=== PATIENT | male | born 1955 | race Two or more races ===

== ENCOUNTER 2020-12-31 12:14 | Inpatient (IN) | payer OTHER ==
[2020-12-31] VITALS (9 sets, daily range): BP systolic 138–156; BP diastolic 58–80
[~2020-12-31] VITALS: Ht 185.4 cm; Wt 189.6 kg
[2020-12-31] MEDS ORDERED: IV NS 0.9% 1,000 ML BAG IV ONE (12:30)
[2020-12-31 12:42] LABS: BASOPHILS % (AUTO) 0.1 % (0.0-2.0); EOSINOPHILS % (AUTO) 0.3 % (0.0-6.0); HEMATOCRIT 43 % (39-51); HEMOGLOBIN 13.7 g/dL (13.5-17.5); LYMPHOCYTES # (AUTO) 1.1 /CMM (0.8-4.8); LYMPHOCYTES % (AUTO) 4.3 % (20.0-44.0); MEAN CORPUSCULAR HGB CONC 32 g/dl (31.0-36.0); MEAN CORPUSCULAR VOLUME 88 fL (80-96); MONOCYTES # (AUTO) 1.2 /CMM (0.1-1.30); MONOCYTES % (AUTO) 4.5 % (2.0-12.0); NEUTROPHILS # (AUTO) 23.4 /CMM (1.8-8.9); NEUTROPHILS % (AUTO) 90.8 % (43.0-81.0); PLATELET COUNT (AUTO) 255 /CMM (150-450); RED BLOOD CELL COUNT(AUTO) 4.84 MIL/uL (4.5-6.0); WHITE BLOOD COUNT (AUTO) 25.8 K/uL (4.3-11.0)
[2020-12-31] MEDS ORDERED: HYDR25TA4 PO (12:49)
[2020-12-31] MEDS ORDERED: ATOR10TA PO (12:49)
--- NOTE | 2020-12-31 12:51 | NUR ---
INOCENCIO FROM HOME TO ER BED 7. AAOX4. IN MILD RESP DISTRESS. BREATHING RAPID AND SHALLOW. O2 SAT NOTED @ 73% ON RA. BROUGHT IN FOR FEVER, SOB, GEN BODY ACHE, JOINT ACHE AND WEAKNESS FOR THAT PAST 9 DAYS. PT WAS NOTED WITH OARL TEMP OF 102.3. PT PLACED ON 02 VIA SIMPLE MASK @ 10 LPM SATTING @ 96-98%. WAS AT THE BEDSIDE FOR EVAL. ORDERS RECEIVED, NOTED AND CARRIED OUT. IV LINE ESTABLISHED ON LEFT UPPER ARM 18G, BLOOD DRAWN AND GIVEN TO SURGERY NURSE AT BEDSIDE. PT ON MONITOR.
[2020-12-31] MEDS ORDERED: ACETAMINOPHEN 325 MG TABLET ONE (13:05)
[2020-12-31] MEDS ORDERED: PIPERACILLIN /TAZOBACTAM 3.375 G VIAL IV ONE (13:05)
[2020-12-31 13:08] LABS: CALCIUM, SERUM 8.3 mg/dL (8.5-10.1); CREATININE 6.3 mg/dL (0.6-1.3); POTASSIUM 4.5 mmol/L (3.5-5.1)
[2020-12-31] MEDS ORDERED: DEXAMETHASONE SOD PHOSPHATE 10 MG/ML VIAL ONE (13:13)
[2020-12-31 13:19] LABS: ALBUMIN 2.4 g/dL (3.4-5.0); BILIRUBIN,DIRECT 0.4 mg/dL (0.0-0.2); BILIRUBIN,TOTAL 0.9 mg/dL (0.2-1.0); TOTAL PROTEIN, SERUM 7.7 g/dL (6.4-8.2)
--- NOTE | 2020-12-31 13:19 | NUR ---
SPOKE WITH [facility] FOR INITIAL VITAL SIGNS.
[2020-12-31] MEDS ORDERED: PIPERACILLIN /TAZOBACTAM 3.375 G in IV D5W 50 ML IV ONE (13:30)
[2020-12-31] MEDS ORDERED: DEXAMETHASONE SOD PHOSPHATE 6 MG in IV D5W 50 ML IV ONE (13:30)
[2020-12-31] MEDS ORDERED: ACETAMINOPHEN 325 MG TABLET PO ONE (13:30)
--- NOTE | 2020-12-31 13:32 | NUR ---
RE CALLED [facility] FOR TO CALL US BACK.
[2020-12-31 13:33] LABS: ABG BASE EXCESS -4.8 mmol/L; ABG OXYGEN SATURATION 97.5 % (92.0-98.5); ABG PCO2 51.4 mmHg (35.0-45.0); ABG PH 7.262 (7.350-7.450); ABG PO2 127.4 mmHg (75.0-100.0); AaDO2 243.9 mmHg; COHb 0.3 % (0.5-1.5); MetHb 0.6 % (0.0-1.5); O2Hb 96.6 % (94.0-97.0); SITE, ABG Left Radial; VENT MODE, BG 10L SIMPLE MASK
--- NOTE | 2020-12-31 13:34 | NUR ---
CALLED CARDIO DR. BROWN
--- NOTE | 2020-12-31 13:38 | NUR ---
DR. BRISCOE FROM [facility] SPEAKING WITH DR. DERAS
[2020-12-31] MEDS ORDERED: VANCOMYCIN 1 GM VIAL ONE (13:42)
[2020-12-31] MEDS ORDERED: ASPIRIN 325 MG TABLET ONE (13:42)
--- NOTE | 2020-12-31 13:45 | NUR ---
pt in bipap for respiratory acidosis. pt is tolerating well. pt verbalized that he feels better with the o2.
[2020-12-31] MEDS ORDERED: ASPIRIN 81 MG TAB.CHEW PO ONE (14:00)
[2020-12-31] MEDS ORDERED: VANCOMYCIN 1.5 GM in IV D5W 500 ML IV ONE (14:00)
[2020-12-31] MEDS ORDERED: ENOXAPARIN SODIUM 100 MG/ML DISP.SYRIN SQ ONE ×2 (14:00→14:01)
--- NOTE | 2020-12-31 14:06 | NUR ---
US AT BEDSIDE
--- NOTE | 2020-12-31 14:39 | NUR ---
PT ACCEPTED TO ROOM 252
[2020-12-31] MEDS ORDERED: MAG HYDROX/AL HYDROX/SIMETH 30 ML UDC PO PRN (15:00)
[2020-12-31] MEDS ORDERED: ZOLPIDEM TARTRATE 5 MG TABLET PO PRN (15:00)
[2020-12-31] MEDS ORDERED: Z GUARD REMEDY 2 OZ OINT TP PRN (15:00)
[2020-12-31] MEDS ORDERED: MAGNESIUM HYDROXIDE 30 ML UDC PO PRN (15:00)
[2020-12-31] MEDS ORDERED: ONDANSETRON HCL/PF 4 MG/2 ML VIAL IVP PRN (15:00)
--- NOTE | 2020-12-31 15:14 | NUR ---
REPORT GIVEN TO ELSA JOSÉ FOR ESTEBAN
--- NOTE | 2020-12-31 15:17 | NUR ---
us at bedside for 2d echo.
--- NOTE | 2020-12-31 15:30 | NUR ---
pt transitioned to simple face mask at 8lpm.
--- NOTE | 2020-12-31 15:42 | NUR ---
pt transported to unit on [facility] with emt and rn at the bedside w/ acls protocol. nad noted during transport.
--- NOTE | 2020-12-31 19:29 | NUR ---
RN NOTE RECEIVED PT ALERT AND ORIENTED X 3 IN BED WITH HEAD OF BED ELEVATED. PT ON 10L FACELESS WITH SPO2 AT 90%. RESPIRATIONS UNLABORED AT THIS TIME. PT DENIES PAIN OR DISCOMFORT. IV LINES FLUSHED AND PATENT. VITAL SIGNS STABLE VIA BEDSIDE MONITOR. PLAN OF CARE DISCUSSED, VP MARKETING AT BEDSIDE. SAFETY MEASURES IN PLACE PER PROTOCOL, BED ALARM ON, BED LOCKED AND IN LOW POSITION, SIDE RAILS UP X 3, WILL MONITOR
--- NOTE | 2020-12-31 19:30 | NUR ---
RECEIVED PATIENT FROM ER AT 1535 VIA [employer]. PT ALERT OX4. PT ON SIMPLE MASK 10L, BREATHING IS CALM, SATS 95%. ATTEMPTED PUT XIE CATHETER IN PATIENT, UNABLE TO D/T PATIENTS ANATOMY. URETHRAL MEATUS IS VERY SMALL AND STIFF, UNABLE TO INSERT EVEN A VERY SMALL CATHETER INTO MEATUS. DR. AGUILERA NOTIFIED AND WILL CONTACT UROLOGY. PT STATES HE HAS NOT URINATED SINCE THIS AM. PT STATES HE THINKS HE CAN USE A URINAL WHEN HE NEEDS TO URINATE. PICTURES TAKEN OF WOUNDS. NYSTATIN POWDER ORDERED FOR MOISTURE RELATED REDNESS IN ABD SKIN FOLDS. WOUND CARE CONSULT ORDERED FOR CELLULITIS OF BILAT LOWER LEGS AND REDNESS IN ABD SKIN FOLDS. PT CHECKED ON HOURLY AND PRN BY NURSING STAFF.
--- NOTE | 2020-12-31 20:00 | NUR ---
RN NOTE NOTED SPO2 BETWEEN 86-90% WHILE ON 10L FACEMASK. PT DENIES TROUBLE BREATHING. PLACED PT ON 15L NON REBREATHER WITH SPO2 INCREASING TO 100%. PT DENIES DISCOMFORT. RT AT BEDSIDE. ASSISTED PT TO DRINK WATER AND JUICE AND TOLERATING WELL. NO FURTHER NEEDS AT THIS TIME.
[2021-01-01] VITALS (24 sets, daily range): BP systolic 102–157; BP diastolic 56–87
--- NOTE | 2021-01-01 | NUR ---
RN NOTE PT CURRENTLY SLEEPING WITH HEAD OF BED ELEVATED BUT EASILY AROUSABLE. IN NO APPARENT DISTRESS. VITAL SIGNS STABLE VIA BEDSIDE MONITOR. ON 15L NON REBREATHER.
--- NOTE | 2021-01-01 02:54 | NUR ---
RN NOTE PT AWAKE AND ALERT WATCHING TV. VITAL SIGNS STABLE. PT DENIES TROUBLE BREATHING, PAIN OR DISCOMFORT, OFFERED TO GIVE PT BATH AND TO CHANGE GOWN/LINENS BUT PT REFUSED STATING THAT HE WOULD LIKE TO REST FOR NOW. ASSISTED PT TO DRINK ADDITIONAL JUICE AND WATER. PT TOLERATED WELL.
[2021-01-01 04:45] LABS: BASOPHILS % (AUTO) 0.2 % (0.0-2.0); EOSINOPHILS % (AUTO) 0.4 % (0.0-6.0); HEMATOCRIT 37 % (39-51); HEMOGLOBIN 11.9 g/dL (13.5-17.5); LYMPHOCYTES # (AUTO) 1.4 /CMM (0.8-4.8); LYMPHOCYTES % (AUTO) 6.3 % (20.0-44.0); MEAN CORPUSCULAR HGB CONC 32 g/dl (31.0-36.0); MEAN CORPUSCULAR VOLUME 88 fL (80-96); MONOCYTES # (AUTO) 1.3 /CMM (0.1-1.30); MONOCYTES % (AUTO) 5.8 % (2.0-12.0); NEUTROPHILS # (AUTO) 19.7 /CMM (1.8-8.9); NEUTROPHILS % (AUTO) 87.3 % (43.0-81.0); PLATELET COUNT (AUTO) 209 /CMM (150-450); RED BLOOD CELL COUNT(AUTO) 4.21 MIL/uL (4.5-6.0); WHITE BLOOD COUNT (AUTO) 22.6 K/uL (4.3-11.0)
--- NOTE | 2021-01-01 05:26 | NUR ---
RN NOTE PT AWAKE AND ALERT. SPO2 97%. PLACED PT ON 10L FACEMASK. WILL MONITOR TOLERANCE.
[2021-01-01 05:32] LABS: CALCIUM, SERUM 8.2 mg/dL (8.5-10.1); POTASSIUM 5.2 mmol/L (3.5-5.1)
[2021-01-01 05:38] LABS: THYROID STIMULATING HORMONE 0.563 uIU/mL (0.358-3.74)
[2021-01-01 05:58] LABS: CREATININE 8.1 mg/dL (0.6-1.3); PHOSPHORUS 9.9 mg/dL (2.5-4.9)
--- NOTE | 2021-01-01 06:01 | NUR ---
RN NOTE SPOKE TO PHARMACY WHO STATES TO START HEPARIN DRIP AT 1200UNITS PER HOUR WITHOUT BOLUS. PTT TO BE DRAWN 1200. ORDER CARRIED OUT.
[2021-01-01] MEDS: HEPARIN INFUSION/D5W 500 ML IV PRN ×2 (06:10→23:46)
--- NOTE | 2021-01-01 06:53 | NUR ---
RN NOTE NO ACUTE CHANGES OBSERVED OVERNIGHT. PT IS ALERT AND ORIENTED X 3. ON FACEMASK 10L. SPO2 96%. PT DENIES PAIN OR DISCOMFORT. PT REFUSED BATH AND LINEN CHANGE. ONGOING HEPARIN DRIP INFUSION ORDERED. NO SIGNS OF BLEEDING. PT HAS HAD NO URINE OUTPUT THIS SHIFT. CALL LIGHT WITHIN REACH, SAFETY MEASURES IN PLACE PER PROTOCOL, WILL ENDORSE TO MORNING RN FOR ESTEBAN.
--- NOTE | 2021-01-01 07:18 | NUR ---
RN OPENING NOTES RECEIVED PT A/O X4. ON 15L MASK SATURATING 100%. FELICITAS AND RAC PERIPHERAL LINES. HEPARIN DRIP AT 1200 UNITS/HR. POSITIONED COMFORTABLY ON BED. SAFETY CHECKS IN PLACE. WILL CONTINUE TO MONITOR.
--- NOTE | 2021-01-01 07:19 | NUR ---
pt. is awake and follow commands placed into nasal cannula @ 6 lpm o2 flow. spo2 95% Addendum: 01/01/21 at 0720 by SAIGE MEDEROS RT Amended: Links added.
[2021-01-01] MEDS: PANTOPRAZOLE 40 MG TABLET.DR PO SCH (08:10)
[2021-01-01] MEDS: NYSTATIN TOP POWDER 15 GM BOTTLE TP SCH ×2 (08:10→16:04)
[2021-01-01] MEDS ORDERED: BUMETANIDE INJ 4 MG in IV D5W 24 ML IV ONE (09:00)
[2021-01-01] MEDS ORDERED: PIPERACILLIN /TAZOBACTAM 2.25 G in IV D5W 50 ML IV SCH (10:00)
[2021-01-01] MEDS: ACETAMINOPHEN 325 MG TABLET PO PRN ×2 (11:36→20:21)
[2021-01-01] MEDS: CEFTRIAXONE 1 G in IV D5W 50 ML IV SCH (11:36)
[2021-01-01] MEDS: AZITHROMYCIN 250 MG TABLET PO SCH (12:01)
[2021-01-01] MEDS ORDERED: HEPARIN SODIUM, PORCINE 1,000 UNIT/ML VIAL IV ONE (14:00)
[2021-01-01] MEDS ORDERED: HEPARIN SODIUM, PORCINE 5000 UNITS/1 ML VIAL IV ONE (14:00)
--- NOTE | 2021-01-01 14:15 | NUR ---
RN NOTES 12PM PTT WAS 32.7. PER PROTOCOL, 6000 UNITS OF HEPARIN GIVEN IV BOLUS, HEPARIN INFUSION RATE INCREASED BY 300UNITS/HR FOR A TOTAL OF 1500 UNITS/HR NOW. REPEAT PTT ORDERED FOR 1814.
--- NOTE | 2021-01-01 14:45 | NUR ---
RN NOTES NOTIFIED DR AGUILERA THAT WE'RE STILL PENDING UROLOGY CONSULT.
--- NOTE | 2021-01-01 18:36 | NUR ---
RN CLOSING NOTES REMAINS A/O X4. ON 4L NASAL CANNULA SATURATING 93%. FELICITAS AND RAC PERIPHERAL LINES INTACT. HEPARIN DRIP AT 1500 UNITS/HR. TRANSFERRED SAFELY TO A BARIATRIC BED. 1814 PTT CURRENTLY BEING DRAWN. AWAITING UROLOGY SPECIALIST - UROLOGY TRAY AND OTHER MATERIALS ALREADY AVAILABLE FOR HIM. SAFETY CHECKS IN PLACE. WILL ENDORSE TO NIGHT RN FOR CONTINUITY OF CARE..
--- NOTE | 2021-01-01 19:26 | NUR ---
RN NOTES BLADDER SCANNED 40MLS.
--- NOTE | 2021-01-01 20:00 | NUR ---
OPEN HEARTH WORKER: DR. DICKERSON (UROLOGIST) INSERTED F/C 14 FR. AND PT. TOLERATED FAIRLY. TEA COLORED URINE DRAINING VIA GRAVITY. REMAINED A/O X3. ON 4L 02 VIA NC. HEPARIN DRIP INCREASED TO 1700U/HR FOR PTT RESULT OF 36.8. WILL RECHECK PTT IN 6 HRS. SR ON DYER ASSISTANT WT BBB. AFEBRILE. HOB AT 90 DEGREES. BARIATRIC BED IN LOWEST POSITION AND LOCKED. CALL LIGHT WITHIN REACH. WILL CONTINUE TO MONITOR.
--- NOTE | 2021-01-01 21:30 | NUR ---
MACHINE SKIVER: REASSESSED PENILE PAIN AN HOUR AFTER GIVEN TYLENOL WT GOOD EFFECT. PAIN VERBALIZED PAIN RELIEF AT THIS TIME. WILL CONTINUE TO MONITOR.
[2021-01-02] VITALS (35 sets, daily range): BP systolic 90–137; BP diastolic 45–73
[2021-01-02] MEDS ORDERED: VANCOMYCIN 1 GM in IV D5W 250 ML IV ONE (02:00)
[2021-01-02] MEDS ORDERED: VANCOMYCIN 1 GM VIAL ONE (02:19)
--- NOTE | 2021-01-02 02:40 | NUR ---
MAIL SORTING SUPERVISOR: VANCOMYCIN STARTED ORDERED FOR GRAM POSITIVE COCCI IN BLOOD CULTURE. WILL CONTINUE TO MONITOR FOR ANY ADVERSE REACTIONS.
[2021-01-02] MEDS: ACETAMINOPHEN 325 MG TABLET PO PRN ×3 (02:48→21:27)
[2021-01-02 04:40] LABS: BASOPHILS % (AUTO) 0.2 % (0.0-2.0); EOSINOPHILS % (AUTO) 0.1 % (0.0-6.0); HEMATOCRIT 35 % (39-51); HEMOGLOBIN 11.3 g/dL (13.5-17.5); LYMPHOCYTES % (AUTO) 9.8 % (20.0-44.0); MEAN CORPUSCULAR HGB CONC 32 g/dl (31.0-36.0); MEAN CORPUSCULAR VOLUME 87 fL (80-96); MONOCYTES # (AUTO) 1.1 /CMM (0.1-1.30); MONOCYTES % (AUTO) 5.2 % (2.0-12.0); NEUTROPHILS # (AUTO) 17.2 /CMM (1.8-8.9); NEUTROPHILS % (AUTO) 84.7 % (43.0-81.0); PLATELET COUNT (AUTO) 195 /CMM (150-450); RED BLOOD CELL COUNT(AUTO) 4.02 MIL/uL (4.5-6.0); WHITE BLOOD COUNT (AUTO) 20.3 K/uL (4.3-11.0)
[2021-01-02 04:57] LABS: ALBUMIN 1.8 g/dL (3.4-5.0); BILIRUBIN,TOTAL 0.4 mg/dL (0.2-1.0); CALCIUM, SERUM 7.7 mg/dL (8.5-10.1); POTASSIUM 4.6 mmol/L (3.5-5.1); TOTAL PROTEIN, SERUM 6.7 g/dL (6.4-8.2)
[2021-01-02 05:03] LABS: PHOSPHORUS 9.1 mg/dL (2.5-4.9)
--- NOTE | 2021-01-02 06:30 | NUR ---
CUTTING DEPARTMENT SUPERVISOR: URINE OUTPUT LESS THAN 200CC. NO ADVERSE REACTION NOTED ON VANCOMYCIN. NO OTHER SIGNIFICANT ESTEBAN. STILL ON HEPARIN DRIP AT 1900U/HR. NO S/S OF IV INFILTRATION, NO BLEEDING NOTED. ALL NEEDS MET.
--- NOTE | 2021-01-02 08:00 | NUR ---
PT ALERT OX4, C/O MILD HEADACHE. XIE CATHETER WAS INSERTED LAST NIGHT BY UROLOGY, SMALL AMOUNT OF DARK TEA COLORED URINE WITH COPIOUS AMOUNTS OF SEDIMENT RETURNING, APPROXIMATELY 20ML AT THIS TIME. UNKNOWN AT THIS TIME IF DR. CURIEL WILL ORDER DIALYSIS OR NOT. RN SPOKE BRIEFLY TO PATIENT ABOUT THE POSSIBILITY OF DIALYSIS. PLAN FOR TODAY IS TO POSSIBILITY TRANSFER PATIENT TO [place]. PT CHECKED ON HOURLY AND PRN BY NURSING STAFF.
[2021-01-02] MEDS: PANTOPRAZOLE 40 MG TABLET.DR PO SCH (08:56)
[2021-01-02] MEDS: NYSTATIN TOP POWDER 15 GM BOTTLE TP SCH ×2 (08:57→18:35)
--- NOTE | 2021-01-02 09:46 | NUR ---
PER MD ORDERS HEPARIN GTT STOPPED. CLARIFIED WITH DR BROWN THAT HEPARIN GTT IS TO BE STOPPED BUT HE DOES NOT WANT TO START AN ANTICOAGULANT TODAY.
--- NOTE | 2021-01-02 09:50 | NUR ---
WOUND CARE CONSULT: PT PRESENTS WITH RASH AND PEELING SKIN TO ABDOMINAL FOLDS, GROIN FOLDS, REDNESS TO PERINEUM, ABRASION TO LEFT ELBOW, WOUND TO LEFT LOWE4R LEG WITH SURROUNDING REDNESS AND EDEMA WELL DISCOLORATION TO BUTTOCKS AND RASH TO GLUTEAL CREASE, ALL PRESENT ON ADMISSION. RECOMMENDATIONS MADE FOR SKIN PROTECTION. DISCUSSED WITH NURSING STAFF. DPM CONSULT CALLED TO DR DUPONT. PT IS ON [facility] AIR BED. MD IN AGREEMENT WITH PLAN OF CARE.
[2021-01-02] MEDS: CEFTRIAXONE 1 G in IV D5W 50 ML IV SCH (11:10)
[2021-01-02] MEDS: AZITHROMYCIN 250 MG TABLET PO SCH (11:11)
[2021-01-02] MEDS: LINEZOLID RTU BAG 600 MG in PREMIX 1 EA IV SCH ×2 (11:47→21:08)
--- NOTE | 2021-01-02 13:03 | NUR ---
PER DR. CURIEL PT WILL NEED DIALYSIS. DR. CURIEL SPOKE TO PATIENT. CONSENT FOR DIALYSIS CATHETER PLACEMENT AND HEMODIALYSIS OBTAINED AND ON CHART. DR. PERDOMO HERE TO INSERT CONNOR CATHETER. UPDATE FROM BROWNS IS THAT TRANSFER IS ON HOLD SINCE PATIENT WILL NEED FIRST DIALYSIS TODAY. BROWNS REP STATED SHE WOULD NOTIFY THE ELECTRIC APPLIANCE INSTALLER.
--- NOTE | 2021-01-02 14:28 | NUR ---
PER XRAY RESULTS LEFT SCL DIALYSIS CATHETER OK TO USE. MORTGAGE UNDERWRITER AT BEDSIDE AT THIS TIME ABOUT TO START DIALYSIS.
--- NOTE | 2021-01-02 16:23 | NUR ---
DIALYSIS COMPLETED AT THIS TIME. PER NYDIA HUNTER 500 ML REMOVED DURING DIALSYS
[2021-01-02] MEDS: CLOTRIMAZOLE 1% 15 GM TUBE TP SCH (18:35)
--- NOTE | 2021-01-02 18:59 | NUR ---
END OF SHIFT NOTE: PER PREVIOUS NOTE PT HAD 1ST DIALYSIS TODAY, 500ML OUT. NO SIGNIFICANT EVENTS THIS SHIFT. NO ELEVATED TEMP. PT ALERT OX4, VERY PLEASANT. PT CHECKED ON HOURLY AND PRN BY NURSING STAFF.
--- NOTE | 2021-01-02 19:00 | NUR ---
Received patient awake.alert,converses,coherent and appropriate,not in any acute respiratory distress but with slight SOB on exertion,with O2 via nasal cannula @ 4 L/min. Morbidly obese (on a special bed), with bilateral cellulitis of lower extremities L>R. Trialysis cath. @ left subclavian ,had 1st HD treatment today . Needs attended.
[2021-01-03] VITALS (22 sets, daily range): BP systolic 86–160; BP diastolic 40–73
--- NOTE | 2021-01-03 | NUR ---
Remains stable,not in any distress. (-) SOB
--- NOTE | 2021-01-03 02:00 | NUR ---
Sleeping well,not in any distress. V/S stable.
[2021-01-03 04:26] LABS: EOSINOPHILS % (AUTO) 0.5 % (0.0-6.0); HEMATOCRIT 33 % (39-51); HEMOGLOBIN 10.9 g/dL (13.5-17.5); LYMPHOCYTES # (AUTO) 1.7 /CMM (0.8-4.8); LYMPHOCYTES % (AUTO) 9.2 % (20.0-44.0); MEAN CORPUSCULAR HGB CONC 33 g/dl (31.0-36.0); MEAN CORPUSCULAR VOLUME 87 fL (80-96); MONOCYTES # (AUTO) 1.1 /CMM (0.1-1.30); MONOCYTES % (AUTO) 6.1 % (2.0-12.0); NEUTROPHILS # (AUTO) 15.7 /CMM (1.8-8.9); NEUTROPHILS % (AUTO) 84.2 % (43.0-81.0); PLATELET COUNT (AUTO) 202 /CMM (150-450); RED BLOOD CELL COUNT(AUTO) 3.84 MIL/uL (4.5-6.0); WHITE BLOOD COUNT (AUTO) 18.7 K/uL (4.3-11.0)
--- NOTE | 2021-01-03 04:30 | NUR ---
Refused am bath/sheets change at this time,expressed desire to sleep more,would want AM bath during the day.
[2021-01-03 04:38] LABS: ALBUMIN 1.7 g/dL (3.4-5.0); BILIRUBIN,TOTAL 0.5 mg/dL (0.2-1.0); CALCIUM, SERUM 7.5 mg/dL (8.5-10.1); MAGNESIUM 2.6 mg/dL (1.8-2.4); PHOSPHORUS 7.6 mg/dL (2.5-4.9); POTASSIUM 4.4 mmol/L (3.5-5.1); TOTAL PROTEIN, SERUM 6.5 g/dL (6.4-8.2)
[2021-01-03 04:40] LABS: CREATININE 9.7 mg/dL (0.6-1.3)
--- NOTE | 2021-01-03 07:00 | NUR ---
Remains stable, no respiratory distress,no chest pain, remains oliguric.Report given raissa Ram RN
[2021-01-03 07:07] LABS: PTH, INTACT 338 pg/mL (15-65)
--- NOTE | 2021-01-03 07:10 | NUR ---
RN INITIAL NOTES RECEIVED PT AWAKE, A/OX4. ON NASAL CANNULA AT 4LPM. HOB ELEVATED. DENIES ANY PAIN. IV LINES IN PLACE. XIE IN PLACE. PT FOR TRANSFER TO [place]. CALL LIGHT WITHIN REACH. WILL CLOSELY MONITOR
[2021-01-03 08:07] LABS: COMPLEMENT C3, SERUM 125 mg/dL (82-167); COMPLEMENT C4, SERUM 37 mg/dL (12-38)
[2021-01-03] MEDS: NYSTATIN TOP POWDER 15 GM BOTTLE TP SCH ×2 (08:20→16:26)
[2021-01-03] MEDS: LINEZOLID RTU BAG 600 MG in PREMIX 1 EA IV SCH (08:20)
[2021-01-03] MEDS: CLOTRIMAZOLE 1% 15 GM TUBE TP SCH ×2 (08:20→16:26)
[2021-01-03] MEDS: PANTOPRAZOLE 40 MG TABLET.DR PO SCH (08:21)
[2021-01-03] MEDS: HYDROCODONE/APAP 5/325MG TABLET PO PRN ×2 (08:56→17:30)
[2021-01-03 11:08] LABS: CREATININE KINASE (CK),MB 42.2 ng/mL (0.0-10.4)
[2021-01-03 12:07] LABS: *SPE A/G RATIO 0.6 (0.7-1.7); *SPE ALPHA-1-GLOBULIN 0.4 g/dL (0.0-0.4); *SPE ALPHA-2-GLOBULIN 1.4 g/dL (0.4-1.0); *SPE BETA GLOBULIN 0.7 g/dL (0.7-1.3); *SPE GLOBULIN, TOTAL 3.6 g/dL (2.2-3.9); *SPE M-SPIKE Not Observed g/dL (Not Observed); *SPEGAMMA GLOBULIN 1.1 g/dL (0.4-1.8)
[2021-01-03] MEDS: AZITHROMYCIN 250 MG TABLET PO SCH (13:44)
[2021-01-03] MEDS: CEFTRIAXONE 1 G in IV D5W 50 ML IV SCH (13:50)
[2021-01-03 14:07] LABS: *ANA ANTI-CENTROMERE B AB <0.2 AI (0.0-0.9); *ANA ANTI-DNA(DS) AB, QN 10 IU/mL (0-9); *ANA ANTI-JO-1 <0.2 AI (0.0-0.9); *ANA ANTICHROMATIN ANTIBODY <0.2 AI (0.0-0.9); *ANA RNP ANTIBODIES 1.5 AI (0.0-0.9); *ANA SJOGREN'S ANTI-SS-A <0.2 AI (0.0-0.9); *ANA SJOGREN'S ANTI-SS-B <0.2 AI (0.0-0.9); *ANAANTI-SCLERODERMA-70 AB <0.2 AI (0.0-0.9)
--- NOTE | 2021-01-03 17:58 | NUR ---
RN NOTES PT LEFT VIA AMBULANCE. PT A/OX4. ON 02 VIA NC. NO SOB NOTED. DENIES ANY PAIN. LEFT SUBCLAVIAN TLC WITH PIGTAIL IN PLACE. XIE IN PLACE. PT CLEAN AND DRY. LEFT IN STABLE CONDITION GOING TO [facility].
[2021-01-04 09:07] LABS: *ANASMITH AB <0.2 AI (0.0-0.9)
[2021-01-04 13:07] LABS: *ANCA ATYPICAL p-ANCA <1:20 titer (Neg:<1:20); *ANCA CYTOPLASMIC (C-ANCA) <1:20 titer (Neg:<1:20); *ANCA PERINUCLEAR (P-ANCA) <1:20 titer (Neg:<1:20); *ANCANTIMYELOPEROXIDASE (MPO) <9.0 U/mL (0.0-9.0); *ANCANTIPROTEINASE 3 (PR-3) AB <3.5 U/mL (0.0-3.5)
[2021-01-05] MEDS ORDERED: VANCOMYCIN 1.25 GM in IV D5W 250 ML IV SCH (02:00)
== END 2021-01-03 18:26 | disposition home or self-care (01) | DRG 853 ==
LOC: ER 12:16 → ICU 14:42
PROVIDERS: ADMIT Student in an Organized Health Care Education/Training Program
PROC: 0T7B7ZZ Dilation of Bladder, Via Natural or Artificial Opening (ICD-10-PCS; 2021-01-01)
PROC: 0T9B70Z Drainage of Bladder with Drainage Device, Via Natural or Artificial Opening (ICD-10-PCS; 2021-01-01)
PROC: 0JBP0ZZ Excision of Left Lower Leg Subcutaneous Tissue and Fascia, Open Approach (ICD-10-PCS; principal; 2021-01-02)
PROC: 5A1D70Z Performance of Urinary Filtration, Intermittent, Less than 6 Hours Per Day (ICD-10-PCS; 2021-01-02)
PROC: 05H633Z Insertion of Infusion Device into Left Subclavian Vein, Percutaneous Approach (ICD-10-PCS; 2021-01-02)
DX: A41.1 Sepsis due to other specified staphylococcus (principal); J18.9 Pneumonia, unspecified organism; J96.02 Acute respiratory failure with hypercapnia; J96.01 Acute respiratory failure with hypoxia; N17.0 Acute kidney failure with tubular necrosis; I21.A1 Myocardial infarction type 2; E44.0 Moderate protein-calorie malnutrition; I13.0 Hypertensive heart and chronic kidney disease with heart failure and stage 1 through stage 4 chronic kidney disease, or unspecified chronic kidney disease; E87.2 Acidosis; Z68.43 Body mass index [BMI] 50.0-59.9, adult; M62.82 Rhabdomyolysis; L03.116 Cellulitis of left lower limb; J98.11 Atelectasis; N18.9 Chronic kidney disease, unspecified; N13.9 Obstructive and reflux uropathy, unspecified; Z20.822 Contact with and (suspected) exposure to COVID-19; E66.01 Morbid (severe) obesity due to excess calories; E78.5 Hyperlipidemia, unspecified; G47.33 Obstructive sleep apnea (adult) (pediatric); Z79.899 Other long term (current) drug therapy; E86.0 Dehydration; D64.9 Anemia, unspecified; R74.01 Elevation of levels of liver transaminase levels; I50.9 Heart failure, unspecified; I87.2 Venous insufficiency (chronic) (peripheral); I87.8 Other specified disorders of veins; N35.911 Unspecified urethral stricture, male, meatal; Z82.49 Family history of ischemic heart disease and other diseases of the circulatory system; Z83.3 Family history of diabetes mellitus; R33.9 Retention of urine, unspecified; I89.0 Lymphedema, not elsewhere classified
CPT/HCPCS: 36415; 36600; 71045-TC; 76770-TC; 80048-TC; 80053-TC; 80061-TC; 80076-TC; 82550-TC; 82553; 83516; 83520; 83605-TC; 83735-TC; 83880; 83970; 84100-TC; 84155; 84165; 84443-TC; 84484-TC; 85025-TC; 85378-TC; 85610-TC; 85652-TC; 85730-TC; 86225; 86235; 86256; 86706; 86803; 87040-TC; 87081-TC; 87340; 87806; 90935-TC; 93307-TC; 93970-TC; 94799-TC; A4216; C1750; C9803; G0378; J0696; J1100; J1644; J1650; J2020; J2543; J3370; J3490; J7030; J7050; J7060; U0003

== ENCOUNTER 2025-06-30 11:15 | Emergency (ER) | payer MEDICARE, OTHER ==
[~2025-06-30] VITALS: Ht 182.9 cm; Wt 179.2 kg
[~2025-06-30 11:15] MED LIST: ATOR10TA PO; HYDR25TA4 PO
[2025-06-30] MEDS ORDERED: ACETAMINOPHEN 325 MG TABLET ONE (11:41)
[2025-06-30] MEDS: ACETAMINOPHEN 325 MG TABLET PO ONE (11:45)
[2025-06-30 11:51] LABS: PLATELET COUNT (AUTO) 196 K/uL (150-450); RED BLOOD CELL COUNT(AUTO) 4.46 MIL/uL (4.5-6.0); RED CELL DISTRIBUTION WIDTH 14.9 % (11.5-15.0); WHITE BLOOD COUNT (AUTO) 11.1 K/uL (4.3-11.0)
[2025-06-30 11:57] LABS: CALCIUM, SERUM 9.1 mg/dL (8.5-10.1); CREATININE 1.8 mg/dL (0.6-1.3); SODIUM SERUM 138 mmol/L (136-145); UREA NITROGEN, BLOOD 23 mg/dL (7-18)
[2025-06-30 12:04] LABS: ASPARTATE AMINOTRANSFERASE 24 U/L (15-37); INR 1.09 (0.91-1.10); TOTAL PROTEIN, SERUM 7.1 g/dL (6.4-8.2)
[2025-06-30] MEDS: IV NS 0.9% 1,000 ML BAG IV ONE (12:15)
[2025-06-30 12:20] LABS: LACTIC ACID 2.3 mmol/L (0.4-2.0)
[2025-06-30] MEDS: PIPERACILLIN /TAZOBACTAM 3.375 G in IV D5W 50 ML IV ONE (12:30)
[2025-06-30] MEDS ORDERED: TAMS-12 PO (12:31)
[2025-06-30] MEDS ORDERED: ATOR40TA PO (12:31)
[2025-06-30] MEDS: VANCOMYCIN 1 GM in IV D5W 250 ML IV ONE (13:00)
[2025-06-30 13:37] LABS: APPEARANCE,URINE CLOUDY (CLEAR); BLOOD, URINE 1+ Ery/uL (NEGATIVE); LEUKOCYTE ESTERASE ,URINE 2+ (NEGATIVE); NITRITE, URINE POSITIVE (NEGATIVE); UGLUCOSE NEGATIVE (NEGATIVE)
[2025-06-30 13:48] LABS: ADD URINE CULTURE YES; SQUAMOUS EPITHELIAL CELL,UR Moderate /HPF (None Seen); URINE AMORPHOUS URATE Many /HPF (None Seen)
[2025-06-30 15:15] VITALS: BP 120/70; TEMP 99.8; O2SAT 97
== END 2025-06-30 18:02 | disposition admitted as inpatient to this hospital (09) ==
LOC: ER 11:21
DX: A41.9 Sepsis, unspecified organism (principal); R65.20 Severe sepsis without septic shock; N39.0 Urinary tract infection, site not specified; D72.829 Elevated white blood cell count, unspecified; J02.9 Acute pharyngitis, unspecified; M79.604 Pain in right leg; M79.605 Pain in left leg; R79.89 Other specified abnormal findings of blood chemistry; E78.5 Hyperlipidemia, unspecified; E87.20 Acidosis, unspecified; E66.01 Morbid (severe) obesity due to excess calories; I13.10 Hypertensive heart and chronic kidney disease without heart failure, with stage 1 through stage 4 chronic kidney disease, or unspecified chronic kidney disease; N18.9 Chronic kidney disease, unspecified; N40.0 Benign prostatic hyperplasia without lower urinary tract symptoms; Z68.43 Body mass index [BMI] 50.0-59.9, adult; Z91.011 Allergy to milk products; Z20.822 Contact with and (suspected) exposure to COVID-19
CPT/HCPCS: 99291; 93970; 96365; 71045; 96361; 96375; 87426; 93005; 87804 ×2; 84145; 85025; 80048; 87077; 87040 ×2; 87070; 87086; 83605 ×2; 80076; 87186 ×2; 81001; 36415; 87880; 84484; 85730; J3373; J2543; J7060; J7030; 86403-TC